=== PATIENT | female | born 1995 | race Caucasian/White ===

== ENCOUNTER → 2016-04-12 | Outpatient (CLI) | payer OTHER ==
[~2016-04-12] MED LIST: PRENTAB13 PO; TUMS500C PO
[2016-04-12 12:35] LABS: MEAN CORPUSCULAR HEMOGLOBIN 28.7 pg (27.0-33.0); MEAN CORPUSCULAR HGB CONC 32.3 g/dl (32.0-36.5); MEAN CORPUSCULAR VOLUME 88.9 fl (80.0-96.0); RED CELL DISTRIBUTION WIDTH 12.9 % (11.5-14.5); WHITE BLOOD COUNT 5.8 K/mm3 (4.0-10.0)
[2016-04-12 12:57] LABS: ALBUMIN/GLOBULIN RATIO 1.21 (1.00-1.93); ALKALINE PHOSPHATASE 91 U/L (45-117); ALT/SGPT 45 U/L (12-78); ANION GAP 9 MEQ/L (8-16); AST/SGOT 20 U/L (15-37); BILIRUBIN,TOTAL 0.5 MG/DL (0.2-1.0); BLOOD UREA NITROGEN 12 MG/DL (7-18); CALCIUM LEVEL 9.1 MG/DL (8.5-10.1); CARBON DIOXIDE LEVEL 27 MEQ/L (21-32); CHLORIDE LEVEL 105 MEQ/L (98-107); CREATININE FOR GFR 0.82 MG/DL (0.55-1.02); GLUCOSE, FASTING 92 MG/DL (70-105); POTASSIUM SERUM 4.4 MEQ/L (3.5-5.1); SODIUM LEVEL 141 MEQ/L (136-145); TOTAL PROTEIN 7.3 GM/DL (6.4-8.2)
== END ==
LOC: M WUC 08:43
PROVIDERS: ATTEND Family Medicine
DX: Z79.899 Other long term (current) drug therapy (principal)

== ENCOUNTER → 2016-05-27 | Outpatient (REF) | payer OTHER | LOC: M LAB REF 10:12 | PROVIDERS: ATTEND Physician Assistant | DX: J02.9 Acute pharyngitis, unspecified (principal) ==

== ENCOUNTER → 2016-06-04 | Outpatient (CLI) | payer OTHER ==
[2016-06-04 17:17] LABS: ALBUMIN/GLOBULIN RATIO 1.05 (1.00-1.93); ALKALINE PHOSPHATASE 103 U/L (45-117); ALT/SGPT 28 U/L (12-78); ANION GAP 11 MEQ/L (8-16); AST/SGOT 14 U/L (15-37); BILIRUBIN,TOTAL 0.2 MG/DL (0.2-1.0); BLOOD UREA NITROGEN 14 MG/DL (7-18); CALCIUM LEVEL 9.3 MG/DL (8.5-10.1); CARBON DIOXIDE LEVEL 25 MEQ/L (21-32); CHLORIDE LEVEL 102 MEQ/L (98-107); CREATININE FOR GFR 1.04 MG/DL (0.55-1.02); FREE T4 1.11 NG/DL (0.78-1.33); GLUCOSE, FASTING 118 MG/DL (70-105); POTASSIUM SERUM 4.1 MEQ/L (3.5-5.1); SODIUM LEVEL 138 MEQ/L (136-145); TOTAL PROTEIN 7.8 GM/DL (6.4-8.2)
[2016-06-05 11:19] LABS: THYROID PEROXIDASE ANTIBODY < 28.0 U/ML (<60.0)
== END ==
LOC: M WUC 13:56
PROVIDERS: ATTEND Nurse Practitioner Pediatrics
DX: F43.22 Adjustment disorder with anxiety (principal); F90.0 Attention-deficit hyperactivity disorder, predominantly inattentive type; R53.83 Other fatigue

== ENCOUNTER → 2016-08-28 | Outpatient (CLI) | payer OTHER ==
--- NOTE | 2016-08-29 06:47 | REP ---
Clinical: Pelvic pain. Ovarian cysts. . Technique: Transabdominal pelvic ultrasound followed by transvaginal examination for better evaluation of the endometrium and adnexa with color Doppler evaluation of the ovaries. Findings: Bladder is unremarkable and measures 4.9 x 4.3 x 2.1 cm . Normal anteverted uterus measures 8.2 x 4.5 x 5.5 cm . The endometrial complex measures 4.5 mm thickness. No discrete uterine or endometrial abnormalities are appreciated. Bilateral ovaries are normal in appearance and vascularity without evidence for torsion. Right ovary measures 4.6 x 4.8 x 4.1 cm with 3.2 cm cyst ; R I = 0.52 . Left ovary measures 3.8 x 1.4 x 3.1 cm ; R I = 0.40 . No pelvic fluid or adnexal mass lesion identified . Impression: 1. 3.2 cm right ovarian cyst. Consider follow-up in 4-6 weeks to evaluate for resolution. Signed by Kumar Van MD 08/29/2016 06:38 A
== END ==
LOC: M RAD 08:23
PROVIDERS: ATTEND Specialist
DX: N83.209 Unspecified ovarian cyst, unspecified side (principal)